=== PATIENT | female | born 2000 | race African-American/Black ===

== ENCOUNTER 2019-03-13 04:49 | Emergency (ER) | payer SELFPAY ==
[~2019-03-13] VITALS: Ht 167.6 cm; Wt 50.0 kg
[2019-03-13] MEDS ORDERED: ACETAMINOPHEN 500MG TABLET PO ONE (06:45)
[2019-03-13] MEDS ORDERED: IBUPROFEN 600MG TABLET PO ONE (06:45)
[2019-03-13 06:50] VITALS: BP 110/70
== END 2019-03-13 07:45 | disposition home or self-care (01) ==
LOC: ER 04:49
DX: G89.29 Other chronic pain (principal); M54.5 Low back pain; R10.2 Pelvic and perineal pain; F12.10 Cannabis abuse, uncomplicated; Z87.828 Personal history of other (healed) physical injury and trauma
CPT/HCPCS: 99283

== ENCOUNTER 2020-12-21 15:29 | Emergency (ER) | payer MEDICAID | END 2020-12-21 17:25 | disposition left against medical advice (07) | LOC: ER 15:29 | DX: Z53.21 Procedure and treatment not carried out due to patient leaving prior to being seen by health care provider (principal) ==

== ENCOUNTER 2021-05-04 08:50 | Emergency (ER) | payer MEDICAID ==
[~2021-05-04] VITALS: Ht 160 cm; Wt 50.0 kg
[2021-05-04] MEDS ORDERED: LEVE1000 PO (09:18)
[2021-05-04] MEDS ORDERED: CEPH500T PO (09:18)
[2021-05-04] MEDS ORDERED: HYDR-4233 TP (09:18)
[2021-05-04] MEDS ORDERED: SULF1TAB48 PO (09:18)
[2021-05-04 09:31] VITALS: BP 135/65
== END 2021-05-04 09:32 | disposition home or self-care (01) ==
LOC: ER 08:50
DX: L03.114 Cellulitis of left upper limb (principal); L03.113 Cellulitis of right upper limb; L30.9 Dermatitis, unspecified; G40.909 Epilepsy, unspecified, not intractable, without status epilepticus; F12.10 Cannabis abuse, uncomplicated
CPT/HCPCS: 99281